=== PATIENT | female | born 1955 | race Caucasian/White ===

== ENCOUNTER 2016-09-27 18:41 | Outpatient (CLI) | payer OTHER | END 2016-09-27 18:42 | disposition critical access hospital (66) | LOC: EMS 18:41 | PROVIDERS: ATTEND Surgery | DX: R05 Cough (principal) | CPT/HCPCS: A0425; A0429 ==

== ENCOUNTER 2016-09-27 19:41 | Emergency (ER) | payer OTHER ==
[2016-09-27 19:52] VITALS: BP 119/53
--- NOTE | 2016-09-27 20:11 | ED Physician Documentation ---
PD HPI DYSPNEA - Stated complaint Stated Complaint: COUGH, SOA - Chief complaint Chief Complaint: Resp - History obtained from History obtained from: Patient - History of Present Illness Timing - onset: Today (this evening) Timing - onset during: Rest Timing - details: Gradual onset, Now resolved Pain level now: 8 (LBP) Associated symptoms: Cough. No: Fever Recently seen: Not recently seen - Additional information Additional information: c/o dyspnea, cough since earlier this evening. Given duoneb en route by medics with resolution of symptoms. She has chronic low back pain which is worse than usual (more intense and more widespread, involving mid/upper back as well), which she attributes to the coughing. She last took dose of vicodin 11 AM Review of Systems Constitutional: denies: Fever Cardiac: reports: Chest pain / pressure (only when coughing). denies: Palpitations Respiratory: reports: Dyspnea, Cough GI: reports: Nausea. denies: Vomiting PD PAST MEDICAL HISTORY - Past Medical History Past Medical History: Yes Cardiovascular: High cholesterol Respiratory: COPD Endocrine/Autoimmune: HyPOthyroidism - Allergies Allergies/Adverse Reactions: Allergies Allergy/AdvReac Type Severity Reaction Status Date / Time Sulfa (Sulfonamide Allergy Rash Verified 09/27/16 20:32 Antibiotics) - Living Situation Living Arrangement: reports: At home - Social History Does the pt smoke?: Yes PD ED PE NORMAL - Vitals Vital signs reviewed: Yes - General General: Alert and oriented X 3, Well developed/nourished, Other (appears to have some painful discomfort at times during H+P) - Cardiac Cardiac: RRR, No murmur - Respiratory Respiratory: No respiratory distress, Clear bilaterally Results - Vitals Vitals: Vital Signs - 24 hr 09/27/16 19:48 Temperature 36.7 C Heart Rate 108 H Respiratory 22 Rate Blood Pressure 119/53 L O2 Saturation 92 Oxygen O2 Source Room air PD MEDICAL DECISION MAKING - ED course Complexity details: considered differential, d/w patient ED course: Patient has an MDI (inhaler) at home that is not outdated, does not need rx for this. Dyspnea resolved en route after duoneb Departure - Departure Disposition: 01 Home, Self Care Clinical Impression: Dyspnea, Back pain, chronic Condition: Good Instructions: ED Dyspnea Shortness of Breath, ED Neck Back Pain General Discharge Date/Time: 09/27/16 20:40
[2016-09-27] MEDS ORDERED: HYDROcod/ACETAM 5/325 MG TABLET PO STA (20:23)
[2016-09-27] MEDS ORDERED: HYDROcod/ACETAM 5/325 MG TABLET ONE (20:28)
== END 2016-09-27 20:40 | disposition home or self-care (01) ==
LOC: EDUNIT# → ED 19:41
DX: J44.9 Chronic obstructive pulmonary disease, unspecified (principal); G89.29 Other chronic pain; M54.5 Low back pain
CPT/HCPCS: 99283; A9270

== ENCOUNTER 2020-07-15 08:00 | Outpatient (CLI) | payer OTHER ==
--- NOTE | 2020-07-15 09:56 | XRAY Report ---
PROCEDURE: Hand 3 View RT INDICATIONS: RIGHT HAND PAIN TECHNIQUE: 3 views of the hand(s) acquired. COMPARISON: None FINDINGS: Bones: No fractures or dislocations. Scattered areas of mild joint space loss and trace periarticul ar spurring, particularly first and third MCP, second PIP, second fourth, and fifth DIP, first CMC, M CP, and triscaphe articulation. No suspicious bony lesions. Soft tissues: No suspicious soft tissue calcifications. No radiodense foreign bodies or soft tissue gas. IMPRESSION: 1. No fractures. 2. No radiodense foreign bodies or soft tissue gas. 3. Scattered, mild osteoarthritic changes. Reviewed by: Connie Landis MD on 07/15/2020 9:55 AM PDT Approved by: Connie Landis MD on 07/15/2020 9:55 AM PDT Station ID: [id number]
== END 2020-07-15 23:59 | disposition home or self-care (01) ==
LOC: DI.S 08:00
PROVIDERS: ATTEND Physician Assistant Medical
DX: M19.041 Primary osteoarthritis, right hand (principal)

== ENCOUNTER 2021-01-31 08:00 | Outpatient (CLI) | payer OTHER ==
--- NOTE | 2021-01-31 11:24 | XRAY Report ---
PROCEDURE: Cervical Spine 2 View INDICATIONS: NECK PAIN, ACUTE TECHNIQUE: 3 view(s) of the cervical spine were acquired. COMPARISON: None. FINDINGS: Bones: No fractures or dislocations to the C7 level. The lateral masses of C1 appear intact on the odontoid view. No suspicious bony lesions. Postsurgical changes of posterior fusion from C2 through C7 with deisi and screw fixation. No evidence of hardware fracture or perihardware lucency to suggest complication. There is diffuse intervertebral disc space loss which is near-complete from C3 C4-C6 to C5-C6 with diffuse endplate degenerative changes, uncovertebral, and facet arthropathy. Soft tissues: No prevertebral soft tissue swelling. Mild carotid vascular calcifications. Lung apic es are clear. Left chest wall cardiac device partially imaged. IMPRESSION: Postsurgical changes of the cervical spine status post fusion from C2 through C7 without evidence of hardware complication or acute osseous abnormality. Advanced degenerative changes of the cervical spine. Carotid vascular calcifications. Reviewed by: Alex Ruiz DO on 01/31/2021 10:22 AM [facility] Approved by: Alex Ruiz DO on 01/31/2021 10:22 AM [facility] Station ID: [id number]
== END 2021-01-31 23:59 | disposition home or self-care (01) ==
LOC: DI.S 08:00
PROVIDERS: ATTEND Physician Assistant Medical
DX: M47.812 Spondylosis without myelopathy or radiculopathy, cervical region (principal); M50.31 Other cervical disc degeneration, high cervical region; Z98.1 Arthrodesis status

== ENCOUNTER 2022-06-18 13:10 | Outpatient (CLI) | payer BC, OTHER ==
--- NOTE | 2022-06-18 14:32 | XRAY Report ---
PROCEDURE: Cervical Spine 2 View INDICATIONS: ACUTE NECK PAIN TECHNIQUE: 2 view(s) of the cervical spine were acquired. COMPARISON: X-ray cervical spine 01/31/2021 FINDINGS: Bones: No fractures or dislocations to the C7-T1 level. The lateral masses of C1 appear intact on t he odontoid view. No suspicious bony lesions. Posterior fusion is present from C2 through C7. Hardw are is intact. Hardware is intact without evidence of hardware fracture or periprosthetic lucency to suggest loosening. Multilevel degenerative narrowing is present including disc space narrowing and an terior osteophytes. Multilevel uncovertebral hypertrophy is also present. Soft tissues: No prevertebral soft tissue swelling. IMPRESSION: Apparent stable appearance of posterior fusion and degenerative change. Reviewed by: Maggie Ray MD on 06/18/2022 2:31 PM PDT Approved by: Maggie Ray MD on 06/18/2022 2:31 PM PDT Station ID: [id number]
--- NOTE | 2022-06-18 14:46 | XRAY Report ---
PROCEDURE: Thoracic Spine 2 View INDICATIONS: BACK Pain, thoracic Region, left TECHNIQUE: 2 views of the thoracic spine were acquired. COMPARISON: None. FINDINGS: Bones: No fractures or dislocations. No suspicious bony lesions. 12 pairs of ribs are noted, and a ppear intact where visualized. Cervical spine hardware. Soft tissues: No paravertebral stripe thickening. Left pacemaker. Cholecystectomy clips. IMPRESSION: No compression fracture. Reviewed by: Laci Wise MD on 06/18/2022 2:45 PM PDT Approved by: Laci Wise MD on 06/18/2022 2:45 PM PDT Station ID: [id number]
== END 2022-06-18 13:11 | disposition home or self-care (01) ==
LOC: DI.S 13:10
PROVIDERS: ATTEND Physician Assistant
DX: M47.812 Spondylosis without myelopathy or radiculopathy, cervical region (principal); Z98.1 Arthrodesis status

== ENCOUNTER 2022-10-28 08:00 | Outpatient (CLI) | payer OTHER ==
--- NOTE | 2022-10-28 15:43 | XRAY Report ---
PROCEDURE: Shoulder 3 View LT INDICATIONS: LEFT ROTATOR CUFF TEAR TECHNIQUE: 3 views of the shoulder were acquired. COMPARISON: None. FINDINGS: Bones: No fractures or dislocations. No suspicious bony lesions. Visualized ribs appear intact. Soft tissues: No suspicious soft tissue calcifications. IMPRESSION: No acute bony abnormality. Reviewed by: Adalberto Ryan on 10/28/2022 3:42 PM PDT Approved by: Adalberto Ryan on 10/28/2022 3:42 PM PDT Station ID: [id number]
== END 2022-10-28 23:59 | disposition home or self-care (01) ==
LOC: DI.S 08:00
PROVIDERS: ATTEND Emergency Medicine
DX: M75.102 Unspecified rotator cuff tear or rupture of left shoulder, not specified as traumatic (principal)

== ENCOUNTER 2022-11-25 08:00 | Outpatient (CLI) | payer OTHER ==
--- NOTE | 2022-11-25 15:54 | XRAY Report ---
PROCEDURE: Shoulder 1 View LT INDICATIONS: LEFT SHOULDER PAIN, AXIAL VIEW ONLY TECHNIQUE: 1 views of the shoulder were acquired. COMPARISON: X-ray left shoulder 10/28/2022. FINDINGS: Bones: No fractures or dislocations. No suspicious bony lesions. Visualized ribs appear intact. Soft tissues: No suspicious soft tissue calcifications. Partially visualized left chest wall pacemak er device. IMPRESSION: Single view of the left shoulder demonstrates no acute abnormalities. Reviewed by: Naseem Alvares MD on 11/25/2022 3:53 PM PDT Approved by: Naseem Alvares MD on 11/25/2022 3:53 PM PDT Station ID: [id number]
== END 2022-11-25 23:59 | disposition home or self-care (01) ==
LOC: DI.WOS 08:00
PROVIDERS: ATTEND Physician Assistant Surgical
DX: M75.102 Unspecified rotator cuff tear or rupture of left shoulder, not specified as traumatic (principal)